=== PATIENT | female | born 1960 | race Caucasian/White ===

== ENCOUNTER 2018-08-25 12:14 | Emergency (ER) | payer BC, SELFPAY ==
[2018-08-25] MEDS ORDERED: IBUPROFEN 200 MG TAB PO ONE (13:31)
[2018-08-25] MEDS ORDERED: IBUPROFEN 400 MG TAB ONE (13:31)
[2018-08-25 14:06] LABS: Urine Blood 2+ (NEG); Urine Glucose NEGATIVE (NEG); Urine Protein NEGATIVE (NEG)
[2018-08-25 14:38] LABS: Absolute Lymphocytes (CBC) 0.4 K/uL (0.7-4.9); Absolute Monocytes 0.7 K/uL (0.1-1.3); Absolute Neutrophil 8.5 K/uL (1.8-8.0); Basophils % 0.7 % (0-1.3); Eosinophils % 0.2 % (0-4.4); Hematocrit 41.6 % (36.0-45.0); Lymphocytes % 4.2 % (15.3-44.8); MPV 8.9 fL (7.6-11.3); Monocytes % 7.4 % (3.3-12.3); RBC Red Blood Cell Count 4.69 M/uL (3.86-4.86)
[2018-08-25 14:39] LABS: Protime INR 1.04
[2018-08-25] MEDS ORDERED: NA CHLORIDE 0.9% 1,000 ML ONE (14:40)
--- NOTE | 2018-08-25 14:41 | EKG ---
Test Date: 2018-08-25 Test Time: 13:38:34 Mine Administrator Supervisor: NACHO MEASUREMENT RESULTS: Intervals: Rate: 101 [place]: 112 QRSD: 88 QT: 338 QTc: 438 [place]: P: 34 [place]: 112 QRS: 4 T: -1 INTERPRETIVE STATEMENTS: Sinus tachycardia Cannot rule out Anterior infarct, age undetermined T wave abnormality, consider lateral ischemia Abnormal ECG No previous ECG available for comparison Electronically Signed On 08-25-18 14:40:39 CDT by Bereket Fisher
[2018-08-25 15:01] LABS: ALT/SGPT 46 U/L (12-78); AST/SGOT 37 U/L (15-37); Alkaline Phosphatase 87 U/L (45-117); BUN Blood Urea Nitrogen 11 mg/dL (7-18); Bicarbonate 25 mmol/L (21-32); Bilirubin Direct < 0.1 mg/dL (0-0.2); Bilirubin Total 0.3 mg/dL (0.2-1.0); Glucose Level 91 mg/dL (74-106); Magnesium 2.1 mg/dL (1.8-2.4); NT PRO-BNP 264 pg/mL (<125); Protein, Total 7.7 g/dL (6.4-8.2); Sodium Level 139 mmol/L (136-145); Troponin (Emerg Dept Use Only) < 0.02 ng/mL (0.0-0.045)
--- NOTE | 2018-08-25 15:11 | RAD REPORT ---
EXAM DESCRIPTION: RAD - Chest Single View - 08/25/2018 3:01 pm CLINICAL HISTORY: Chest pain, shortness of breath, cough and congestion COMPARISON: None. TECHNIQUE: AP portable chest image was obtained 1437 hours . FINDINGS: No focal mass or consolidation. No acute failure or volume overload. Interstitial markings are mildly prominent suspected to be baseline. Heart and vasculature are normal. No measurable pleur al effusion and no pneumothorax. No acute bony abnormality seen. No acute aortic findings suspected. IMPRESSION: No acute cardiopulmonary process.
[2018-08-25 15:21] LABS: Blood Morphology Comment NOT SEEN (NOT SEEN); Platelet Estimate ADEQ; Urine White Blood Cell Casts OK
[2018-08-25] MEDS ORDERED: KETOROLAC 30 MG/ML INJ ONE (16:28)
--- NOTE | 2018-08-25 17:43 | ER ---
Nurse's Notes [facility] Name: Giovanna Parker Age: 57 yrs Sex: Female : 1960 Arrival Date: 08/25/2018 Time: 12:18 Bed 23 Private MD: Diagnosis: Viral infection of unspecified site;Headache Presentation: 08/25 13:14 Presenting complaint: Patient states: i woke up this morning and i couldn't move my tw2 legs, they eli stiff and heavy, then my arms ached then i ached all over, i am having chest pain and right side pain, i have cough, sore throat, congestion. Transition of care: patient was not received from another setting of care. Onset of symptoms was August 25, 2018. Risk Assessment: Do you want to hurt yourself or someone else? Patient reports no desire to harm self or others. Initial Sepsis Screen: Does the patient meet any 2 criteria? RR > 20 per min. HR > 90 bpm. No. Patient's initial sepsis screen is negative. Does the patient have a suspected source of infection? Yes: Productive cough/pneumonia. Note EKG paged to triage. Care prior to arrival: None. 13:14 Method Of Arrival: Ambulatory tw2 13:14 Acuity: SHANICE 2 tw2 Triage Assessment: 13:16 General: Appears uncomfortable, ill, Behavior is appropriate for age, quiet. Pain: tw2 Complains of pain in chest and i ache all over. GI: Reports nausea. Historical: - Allergies: 13:14 No Known Allergies; tw2 - Home Meds: 13:14 None [Active]; tw2 - PMHx: 13:14 None; tw2 - PSHx: 13:14 Tubal ligation; Cholecystectomy; tw2 - Immunization history:: Adult Immunizations. - Social history:: Smoking status: Patient uses tobacco products, smokes one-half pack cigarettes per day. - Ebola Screening: : Patient denies travel to an Ebola-affected area in the 21 days before illness onset. Screenin:27 Abuse screen: Denies threats or abuse. Denies injuries from another. Nutritional ca1 screening: No deficits noted. Tuberculosis screening: No symptoms or risk factors identified. Fall Risk None identified. Assessment: 13:27 General: Appears in no apparent distress. comfortable, Behavior is calm, cooperative, ca1 appropriate for age. General: Reports fever for feeling ill for 0-12 hours. Pain: Complains of pain in reports aching pain all over the body that started this morning. Neuro: Level of Consciousness is awake, alert, obeys commands, Oriented to person, place, time, situation. Cardiovascular: Heart tones S1 S2 present Capillary refill < 3 seconds Patient's skin is warm and dry. Respiratory: Airway is patent Respiratory effort is even, unlabored, Respiratory pattern is regular, symmetrical, Breath sounds are clear bilaterally. Respiratory: Reports cough that is since yesterday. GI: Abdomen is flat, non-distended, Bowel sounds present X 4 quads. Abd is soft and non tender X 4 quads. GI: Reports nausea, vomiting, since since this morning. : No deficits noted. No signs and/or symptoms were reported regarding the genitourinary system. EENT: Reports nasal congestion since yesterday. Derm: Skin is intact, is healthy with good turgor, Skin is pink, warm \T\ dry. Musculoskeletal: Circulation, motion, and sensation intact. Capillary refill < 3 seconds. 13:37 Reassessment: Pt ambulated to restroom with steady gait. ss 14:45 Reassessment: Patient appears in no apparent distress at this time. Patient and/or ca1 family updated on plan of care and expected duration. Pain level reassessed. Patient is alert, oriented x 3, equal unlabored respirations, skin warm/dry/pink. 15:41 Reassessment: Patient appears in no apparent distress at this time. Patient is alert, ca1 oriented x 3, equal unlabored respirations, skin warm/dry/pink. 16:30 Reassessment: Patient appears in no apparent distress at this time. Patient and/or ca1 family updated on plan of care and expected duration. Pain level reassessed. Patient is alert, oriented x 3, equal unlabored respirations, skin warm/dry/pink. 17:45 Reassessment: Patient appears in no apparent distress at this time. Patient is alert, ca1 oriented x 3, equal unlabored respirations, skin warm/dry/pink. Patient states feeling better. Vital Signs: 13:13 BP 136 / 57; Pulse 118; Resp 19; Temp 100.6(O); Pulse Ox 96% ; Weight 63.5 kg (R); tw2 Height 5 ft. 4 in. (162.56 cm) (R); Pain 10/10; 13:42 BP 127 / 78; Temp 100(O); Pulse Ox 94% on R/A; Pain 10/10; ss 14:45 BP 107 / 66; Pulse 94; Resp 18 S; Temp 99.8(O); ca1 15:39 BP 102 / 60; Pulse 94; Resp 17 S; Temp 99.3(O); Pulse Ox 96% on R/A; ca1 17:06 BP 102 / 65; Pulse 82; Resp 18; Temp 99.4; Pulse Ox 100% on R/A; mg2 18:00 BP 111 / 78; Pulse 94; Resp 17 S; Temp 99.1(O); Pulse Ox 99% on R/A; ca1 13:13 Body Mass Index 24.03 (63.50 kg, 162.56 cm) tw2 ED Course: 12:18 Patient arrived in ED. mr 13:14 Arm band placed on. tw2 13:16 Triage completed. tw2 13:26 Iqra Best, RN is Primary Nurse. ca1 13:27 Patient has correct armband on for positive identification. Placed in gown. Bed in low ca1 position. Call light in reach. Side rails up X 1. pattern stamper on. Pulse ox on. NIBP on. Warm blanket given. 13:43 EKG done, by technology services manager. reviewed by Haris Cruz MD. at1 14:07 Haris Cruz MD is Attending Physician. kdr 14:31 Inserted saline lock: 20 gauge in right antecubital area, using aseptic technique. ss Blood collected. 15:01 XRAY Chest (1 view) In Process Unspecified. EDMS 18:12 No provider procedures requiring assistance completed. IV discontinued, intact, ca1 bleeding controlled, No redness/swelling at site. Pressure dressing applied. Administered Medications: 13:18 Drug: Motrin 600 mg Route: PO; tw2 13:41 Follow up: Response: No adverse reaction; Temperature is decreased ss 14:31 Drug: NS 0.9% 500 ml Route: IV; Rate: bolus; Site: right antecubital; ss 15:30 Follow up: IV Status: Completed infusion ca1 16:19 Drug: TORadol - Ketorolac 15 mg Route: IVP; Site: right antecubital; mg2 17:30 Follow up: Response: No adverse reaction; Pain is decreased ca1 16:19 Drug: NS 0.9% 1000 ml Route: IV; Rate: 1 bolus; Site: right antecubital; mg2 17:30 Follow up: Response: No adverse reaction; IV Status: Completed infusion ca1 Outcome: 17:42 Discharge ordered by . kdr 18:12 Discharged to home ambulatory. ca1 18:12 Condition: stable 18:12 Discharge instructions given to patient, Instructed on discharge instructions, follow up and referral plans. medication usage, Demonstrated understanding of instructions, follow-up care, medications, Prescriptions given X 2. 18:13 Patient left the ED. ca1 Signatures: Dispatcher [employer] EDMS Haris Cruz MD MD kdr Modi, Venessa bhakta Susu Martinez, RN RN ss Mehnaz Heaton, hardboard grinder EKG Tat1 Page Sibley RN RN tw2 James Carter RN RN mg2 Iqra Best RN RN ca1 Corrections: (The following items were deleted from the chart) 19:50 19:49 Response: No adverse reaction; IV Status: Completed infusion ca1 ca1
--- NOTE | 2018-08-25 17:43 | EDPHYS ---
Physician Documentation [facility] Name: Giovanna Parker Age: 57 yrs Sex: Female : 1960 Arrival Date: 08/25/2018 Time: 12:18 Bed 23 Private MD: ED Physician Haris Cruz HPI: 08/25 17:46 This 57 yrs old Female presents to ER via Ambulatory with complaints of kdr Fever, Vomiting, Headache, Dizziness. 17:46 The patient reports fever, not measured (subjective). Onset: The symptoms/episode kdr began/occurred gradually, this morning, today. Modifying factors: there are no obvious modifying factors. Associated signs and symptoms: Pertinent positives: arthralgias, backache, chills, cough, that is dry, headache, myalgias, nausea. Severity of symptoms: At their worst the symptoms were moderate in the emergency department the symptoms are unchanged. The patient has not experienced similar symptoms in the past. The patient has not recently seen a physician. Historical: - Allergies: 13:14 No Known Allergies; tw2 - Home Meds: 13:14 None [Active]; tw2 - PMHx: 13:14 None; tw2 - PSHx: 13:14 Tubal ligation; Cholecystectomy; tw2 - Immunization history:: Adult Immunizations. - Social history:: Smoking status: Patient uses tobacco products, smokes one-half pack cigarettes per day. - Ebola Screening: : Patient denies travel to an Ebola-affected area in the 21 days before illness onset. ROS: 17:46 Constitutional: Negative for weight loss, has had fever and chills Eyes: Negative for kdr injury, pain, redness, and discharge, ENT: Negative for injury, pain, and discharge, Neck: Negative for injury, pain, and swelling, Cardiovascular: Negative for chest pain, palpitations, and edema, Abdomen/GI: Negative for abdominal pain, nausea, vomiting, diarrhea, and constipation, Back: Negative for injury and pain, : Negative for injury, bleeding, discharge, and swelling, MS/Extremity: Negative for injury and deformity, Skin: Negative for injury, rash, and discoloration, Neuro: Negative for headache, weakness, numbness, tingling, and seizure activity. Psych: Negative for depression, anxiety, suicide ideation, homicidal ideation, and hallucinations, Allergy/Immunology: Negative for hives, rash, and allergies, Endocrine: Negative for neck swelling, polydipsia, polyuria, polyphagia, and marked weight changes, Hematologic/Lymphatic: Negative for swollen nodes, abnormal bleeding, and unusual bruising. 17:46 Respiratory: Positive for cough, Negative for dyspnea on exertion, shortness of breath, sputum production, wheezing. 17:46 Back: Positive for Exam: 17:46 Constitutional: This is a well developed, well nourished patient who is awake, alert, kdr and in minor distress. Head/Face: Normocephalic, atraumatic. Eyes: Pupils equal round and reactive to light, extra-ocular motions intact. Lids and lashes normal. Conjunctiva and sclera are non-icteric and not injected. Cornea within normal limits. Periorbital areas with no swelling, redness, or edema. Neck: Trachea midline, no thyromegaly or masses palpated, and no cervical lymphadenopathy. Supple, full range of motion without nuchal rigidity, or vertebral point tenderness. No Meningismus. Chest/axilla: Normal chest wall appearance and motion. Nontender with no deformity. No lesions are appreciated. Cardiovascular: Regular rate and rhythm with a normal S1 and S2. No gallops, murmurs, or rubs. Normal PMI, no JVD. No pulse deficits. Respiratory: Lungs have equal breath sounds bilaterally, clear to auscultation and percussion. No rales, rhonchi or wheezes noted. No increased work of breathing, no retractions or nasal flaring. Abdomen/GI: Soft, non-tender, with normal bowel sounds. No distension or tympany. No guarding or rebound. No evidence of tenderness throughout. Back: No spinal tenderness. No costovertebral tenderness. Full range of motion. Skin: Warm, dry with normal turgor. Normal color with no rashes, no lesions, and no evidence of cellulitis. MS/ Extremity: Pulses equal, no cyanosis. Neurovascular intact. Full, normal range of motion. Neuro: Awake and alert, GCS 15, oriented to person, place, time, and situation. Cranial nerves II-XII grossly intact. Motor strength 5/5 in all extremities. Sensory grossly intact. Cerebellar exam normal. Normal gait. Psych: Awake, alert, with orientation to person, place and time. Behavior, mood, and affect are within normal limits. Vital Signs: 13:13 BP 136 / 57; Pulse 118; Resp 19; Temp 100.6(O); Pulse Ox 96% ; Weight 63.5 kg (R); tw2 Height 5 ft. 4 in. (162.56 cm) (R); Pain 10/10; 13:42 BP 127 / 78; Temp 100(O); Pulse Ox 94% on R/A; Pain 10/10; ss 14:45 BP 107 / 66; Pulse 94; Resp 18 S; Temp 99.8(O); ca1 15:39 BP 102 / 60; Pulse 94; Resp 17 S; Temp 99.3(O); Pulse Ox 96% on R/A; ca1 17:06 BP 102 / 65; Pulse 82; Resp 18; Temp 99.4; Pulse Ox 100% on R/A; mg2 18:00 BP 111 / 78; Pulse 94; Resp 17 S; Temp 99.1(O); Pulse Ox 99% on R/A; ca1 13:13 Body Mass Index 24.03 (63.50 kg, 162.56 cm) tw2 MDM: 17:42 Patient medically screened. kdr 17:46 Data reviewed: vital signs, nurses notes, lab test result(s), radiologic studies. kdr Counseling: I had a detailed discussion with the patient and/or guardian regarding: the historical points, exam findings, and any diagnostic results supporting the discharge/admit diagnosis, lab results, radiology results, the need for outpatient follow up. ED course: The patient was improved with the inter. 08/25 13:44 Order name: Urine Dipstick--Ancillary (enter results); Complete Time: 16:10 eb 08/25 14:08 Order name: Basic Metabolic Panel kdr 08/25 14:08 Order name: CBC with Diff kdr 08/25 14:08 Order name: LFT's; Complete Time: 16:10 kdr 08/25 14:08 Order name: Magnesium; Complete Time: 16:10 kdr 08/25 14:08 Order name: NT PRO-BNP; Complete Time: 16:10 kdr 08/25 14:08 Order name: PT-INR; Complete Time: 16:10 kdr 08/25 14:08 Order name: Troponin (emerg Dept Use Only); Complete Time: 16:10 kdr 08/25 14:08 Order name: XRAY Chest (1 view); Complete Time: 16:10 [facility] 08/25 14:08 Order name: ESR; Complete Time: 16:10 [facility] 08/25 14:08 Order name: Flu; Complete Time: 16:10 [facility] 08/25 14:09 Order name: Basic Metabolic Panel; Complete Time: 16:10 EDSD 08/25 14:09 Order name: CBC with Automated Diff; Complete Time: 16:10 [facility] 08/25 14:53 Order name: CBC Smear Scan; Complete Time: 16:10 [facility] 08/25 13:40 Order name: EKG; Complete Time: 13:41 08/25 13:40 Order name: EKG - Nurse/Tech; Complete Time: 13:41 08/25 14:08 Order name: Cardiac monitoring; Complete Time: 14:38 [facility] 08/25 14:08 Order name: IV Saline Lock; Complete Time: 14:38 [facility] 08/25 14:08 Order name: Labs collected and sent; Complete Time: 14:38 [facility] 08/25 14:08 Order name: O2 Per Protocol; Complete Time: 14:38 [facility] 08/25 14:08 Order name: O2 Sat Monitoring; Complete Time: 14:38 kdr Administered Medications: 13:18 Drug: Motrin 600 mg Route: PO; tw2 13:41 Follow up: Response: No adverse reaction; Temperature is decreased ss 14:31 Drug: NS 0.9% 500 ml Route: IV; Rate: bolus; Site: right antecubital; ss 15:30 Follow up: IV Status: Completed infusion ca1 16:19 Drug: TORadol - Ketorolac 15 mg Route: IVP; Site: right antecubital; mg2 17:30 Follow up: Response: No adverse reaction; Pain is decreased ca1 16:19 Drug: NS 0.9% 1000 ml Route: IV; Rate: 1 bolus; Site: right antecubital; mg2 17:30 Follow up: Response: No adverse reaction; IV Status: Completed infusion ca1 Disposition: 08/25/18 17:42 Discharged to Home. Impression: Viral infection of unspecified site, Headache. - Condition is Stable. - Discharge Instructions: General Headache Without Cause, Viral Respiratory Infection, [id number]. - Prescriptions for Zofran 4 mg Oral Tablet - take 1 tablet by ORAL route every 4-6 hours As needed; 10 tablet. Tamiflu 75 mg Oral Capsule - take 1 tablet by ORAL route every 12 hours for 5 days; 10 tablet. - Medication Reconciliation Form, Thank You Letter, Antibiotic Education, Prescription Opioid Use, Work release form form. - Follow up: Private Physician; When: 2 - 3 days; Reason: If symptoms return, Further diagnostic work-up, Recheck today's complaints, Continuance of care, Re-evaluation by your physician. - Problem is new. - Symptoms have improved. Signatures: Dispatcher [employer] EDMS Haris Cruz MD MD kdr Susu Martinez RN RN ss Page Sibley RN RN tw2 James Carter, RN RN mg2 Iqra Best RN RN ca1 Corrections: (The following items were deleted from the chart) 18:13 17:42 08/25/2018 17:42 Discharged to Home. Impression: Viral infection of unspecified ca1 site; Headache. Condition is Stable. Forms are Medication Reconciliation Form, Thank You Letter, Antibiotic Education, Prescription Opioid Use. Follow up: Private Physician; When: 2 - 3 days; Reason: If symptoms return, Further diagnostic work-up, Recheck today's complaints, Continuance of care, Re-evaluation by your physician. Problem is new. Symptoms have improved. kdr
== END 2018-08-25 18:13 | disposition home or self-care (01) ==
LOC: ER 12:14
DX: B34.9 Viral infection, unspecified (principal); R51 Headache; R05 Cough; F17.210 Nicotine dependence, cigarettes, uncomplicated
CPT/HCPCS: 36415; 71045; 80048; 80076; 81003; 83735; 83880; 84484; 85025; 85610; 85652; 87804; 93005; 96361; 96374; 99285; J7030

== ENCOUNTER 2018-08-28 08:36 | Emergency (ER) | payer BC ==
[2018-08-28] MEDS ORDERED: NA CHLORIDE 0.9% 1,000 ML ONE (09:18)
[2018-08-28] MEDS ORDERED: ONDANSETRON 4 MG/2 ML VIAL ONE (09:18)
--- NOTE | 2018-08-28 09:22 | EKG ---
Test Date: 2018-08-28 Test Time: 09:17:36 Automatic Lump Making Machine Tender: NACHO MEASUREMENT RESULTS: Intervals: Rate: 64 [place]: 154 QRSD: 86 QT: 426 QTc: 439 [place]: P: 50 OH: 154 QRS: 23 T: 11 INTERPRETIVE STATEMENTS: Normal sinus rhythm Cannot rule out Anterior infarct, age undetermined Abnormal ECG Compared to ECG 08/25/2018 13:38:34 Sinus tachycardia no longer present T-wave abnormality no longer present Possible ischemia no longer present Myocardial infarct finding still present Electronically Signed On 08-28-18 09:22:03 CDT by Timi Khan
[2018-08-28 09:26] LABS: Absolute Lymphocytes (CBC) 1.2 K/uL (0.7-4.9); Absolute Monocytes 0.5 K/uL (0.1-1.3); Absolute Neutrophil 3.6 K/uL (1.8-8.0); Basophils % 0.6 % (0-1.3); Eosinophils % 0.4 % (0-4.4); Hematocrit 41.9 % (36.0-45.0); Lymphocytes % 22.6 % (15.3-44.8); MPV 9.2 fL (7.6-11.3); Monocytes % 9.7 % (3.3-12.3); RBC Red Blood Cell Count 4.75 M/uL (3.86-4.86)
[2018-08-28 09:28] LABS: Urine Blood 2+ (NEG); Urine Glucose NEGATIVE (NEG); Urine Protein NEGATIVE (NEG); Urine Specific Gravity >1.030 (1.005-1.030); Urine pH 5.5 (5.0-7.0)
[2018-08-28 09:35] LABS: Urine Amorphous Sediment 1+ /HPF (NONE SEEN); Urine Bacteria <20 /HPF (<20); Urine Culture Reflex Order NOT NEEDED; Urine Mucus 2+ /HPF (NONE SEEN)
[2018-08-28 09:38] LABS: ALT/SGPT 45 U/L (12-78); AST/SGOT 31 U/L (15-37); Alkaline Phosphatase 75 U/L (45-117); BUN Blood Urea Nitrogen 15 mg/dL (7-18); Bicarbonate 29 mmol/L (21-32); Bilirubin Direct < 0.1 mg/dL (0-0.2); Bilirubin Total 0.3 mg/dL (0.2-1.0); Glucose Level 119 mg/dL (74-106); Lipase 86 U/L (73-393); Potassium 3.6 mmol/L (3.5-5.1); Protein, Total 7.8 g/dL (6.4-8.2); Sodium Level 143 mmol/L (136-145)
--- NOTE | 2018-08-28 10:04 | EDPHYS ---
Physician Documentation [facility] Name: Giovanna Parker Age: 57 yrs Sex: Female : 1960 Arrival Date: 08/28/2018 Time: 08:39 Bed 6 Private MD: Bret Figueredo T ED Physician Abe Evans HPI: 08/28 08:54 This 57 yrs old Female presents to ER via Unassigned with complaints of rn Abdominal Pain, Nausea. 08:54 The patient presents to the emergency department with nausea, abdominal pain, of the rn epigastric area. Onset: The symptoms/episode began/occurred 5 day(s) ago. Possible causes: unknown. The symptoms are aggravated by nothing. The symptoms are alleviated by nothing. Severity of symptoms: At their worst the symptoms were mild in the emergency department the symptoms are unchanged. The patient has not experienced similar symptoms in the past. The patient has been recently seen at the [facility] Emergency Department. Reports seen here 4-5 days ago, for fever/cough/fatigue, told might have flu, given zofran and tamiflu, states doesn't feel better, now more nausea and upper abd cramping, has had gallbladder removed, + mild diarrhea that is non-bloody. Reports feels lightheaded/dizzy/tired. No rash. Still no urinary symptoms. No chest pain/sob. . Historical: - Allergies: 09:00 No Known Allergies; iw - Home Meds: 09:00 None [Active]; iw - PMHx: 09:00 None; iw - PSHx: 09:00 Tubal ligation; Cholecystectomy; iw - Immunization history:: Adult Immunizations. - Family history:: not pertinent. - Ebola Screening: : Patient negative for fever greater than or equal to 101.5 degrees Fahrenheit, and additional compatible Ebola Virus Disease symptoms Patient denies exposure to infectious person Patient denies travel to an Ebola-affected area in the 21 days before illness onset No symptoms or risks identified at this time. - Social history:: Smoking status: unknown. - Hospitalizations: : No recent hospitalization is reported. ROS: 08:54 Constitutional: Negative for chills, and weight loss, Eyes: Negative for injury, pain, rn redness, and discharge, ENT: Negative for injury, pain, and discharge, Neck: Negative for injury, pain, and swelling, Cardiovascular: Negative for chest pain, palpitations, and edema, Respiratory: Negative for shortness of breath, wheezing, and pleuritic chest pain, Abdomen/GI: + abd cramping and nausea, negative for diarrhea or blood in stool Back: Negative for injury and pain, : Negative for injury, bleeding, discharge, and swelling, MS/Extremity: Negative for injury and deformity, Skin: Negative for injury, rash, and discoloration, Neuro: Negative for headache, numbness, tingling, and seizure. Exam: 08:54 Constitutional: This is a well developed, well nourished patient who is awake, alert, rn and in no acute distress. Ambulatory to bathroom and room without difficulty or assistance. Head/Face: Normocephalic, atraumatic. Eyes: Pupils equal round and reactive to light, extra-ocular motions intact. Lids and lashes normal. Conjunctiva and sclera are non-icteric and not injected. Cornea within normal limits. Periorbital areas with no swelling, redness, or edema. ENT: dry MM Neck: Trachea midline, no thyromegaly or masses palpated, and no cervical lymphadenopathy. Supple, full range of motion without nuchal rigidity, or vertebral point tenderness. No Meningismus. Respiratory: No increased work of breathing, no retractions or nasal flaring. Abdomen/GI: soft, non-tender, no masses, no peritoneal signs Skin: Warm, dry, no evidence of cellulitis MS/ Extremity: Pulses equal, no cyanosis. Neurovascular intact. Full, normal range of motion. Equal circumference. Neuro: Awake and alert, GCS 15, oriented to person, place, time, and situation. Cranial nerves II-XII grossly intact. Motor strength 5/5 in all extremities. Sensory grossly intact. Cerebellar exam normal. Normal gait. 09:20 ECG was reviewed by the Attending Physician. rn Vital Signs: 08:59 BP 128 / 78; Pulse 65; Resp 16; Temp 97.7(TE); Pulse Ox 100% on R/A; iw MDM: 08:44 Patient medically screened. rn 10:02 Differential diagnosis: viral gastroenteritis, gastroenteritis, flu, mono, viral rn syndrome. Data reviewed: vital signs, nurses notes, old medical records, lab test result(s), and as a result, I will discharge patient. Counseling: I had a detailed discussion with the patient and/or guardian regarding: the historical points, exam findings, and any diagnostic results supporting the discharge/admit diagnosis, lab results, the need for outpatient follow up, to return to the emergency department if symptoms worsen or persist or if there are any questions or concerns that arise at home. Special discussion: I discussed with the patient/guardian in detail that at this point there is no indication for admission to the hospital. It is understood, however, that if the symptoms persist or worsen the patient needs to return immediately for re-evaluation. 10:04 ED course: Long discussion with patient regarding flu and mono, and to avoid abd trauma rn due to risk of splenic/liver enlargement 2/2 mono.. 08/28 08:53 Order name: Basic Metabolic Panel; Complete Time: 09:47 rn 08/28 08:53 Order name: CBC with Diff; Complete Time: 09:47 rn 08/28 08:53 Order name: Hepatic Function; Complete Time: 09:47 rn 08/28 08:53 Order name: Lipase; Complete Time: 09:47 rn 08/28 08:53 Order name: Flu; Complete Time: 09:47 rn 08/28 08:53 Order name: [place] Screen Profile; Complete Time: 09:47 rn 08/28 08:53 Order name: Strep; Complete Time: 09:47 rn 08/28 08:53 Order name: Urine Microscopic Only; Complete Time: 09:47 rn 08/28 09:04 Order name: Urine Dipstick--Ancillary (enter results); Complete Time: 09:47 08/28 09:04 Order name: Urine --Ancillary (enter results) 08/28 09:05 Order name: Urine --Ancillary; Complete Time: 09:47 EDMS 08/28 09:34 Order name: Throat Culture EDMS 08/28 08:53 Order name: IV Saline Lock; Complete Time: 09:10 rn 08/28 08:53 Order name: Labs collected and sent; Complete Time: 09:11 rn 08/28 08:53 Order name: EKG; Complete Time: 08:54 rn 08/28 08:53 Order name: EKG - Nurse/Tech; Complete Time: 09:14 rn 08/28 08:53 Order name: Urine Dipstick-Ancillary (obtain specimen); Complete Time: 09:01 rn EC:20 Rate is 64 beats/min. Rhythm is regular. QRS Carr is Normal. GA interval is normal. QRS rn interval is normal. QT interval is normal. No Q waves. T waves are Inverted in leads II, III, aVF, V4, V5, V6. No ST changes noted. Clinical impression: NSR w/ Non-specific ST/T Changes. Interpreted by me. Reviewed by me. Administered Medications: 09: Drug: NS 0.9% 1000 ml Route: IV; Rate: 1000 ml; Site: right antecubital; iw 09:10 Drug: Zofran 4 mg Route: IVP; Site: right antecubital; iw Disposition: 08/28/18 10:03 Discharged to Home. Impression: Influenza due to identified novel influenza A virus, Infectious mononucleosis, unspecified, Dehydration. - Condition is Stable. - Discharge Instructions: Influenza, Adult, Infectious Mononucleosis. - Medication Reconciliation Form, Thank You Letter, Antibiotic Education, Prescription Opioid Use, Work release form form. - Follow up: Private Physician; When: As needed; Reason: Recheck today's complaints, Re-evaluation by your physician. - Problem is new. - Symptoms have improved. Signatures: Dispatcher [employer] EDGisela Roque RN RN iw Abe Evans MD MD rn imcu: (The following items were deleted from the chart) 10:04 10:03 08/28/2018 10:03 Discharged to Home. Impression: Influenza due to identified rn novel influenza A virus; Infectious mononucleosis, unspecified. Condition is Stable. Forms are Medication Reconciliation Form, Thank You Letter, Antibiotic Education, Prescription Opioid Use. Follow up: Private Physician; When: As needed; Reason: Recheck today's complaints, Re-evaluation by your physician. Problem is new. Symptoms have improved. rn 10:30 10:04 08/28/2018 10:03 Discharged to Home. Impression: Influenza due to identified iw novel influenza A virus; Infectious mononucleosis, unspecified; Dehydration. Condition is Stable. Forms are Medication Reconciliation Form, Thank You Letter, Antibiotic Education, Prescription Opioid Use. Follow up: Private Physician; When: As needed; Reason: Recheck today's complaints, Re-evaluation by your physician. Problem is new. Symptoms have improved. rn
--- NOTE | 2018-08-28 10:04 | ER ---
Nurse's Notes [facility] Name: Giovanna Parker Age: 57 yrs Sex: Female : 1960 Arrival Date: 08/28/2018 Time: 08:39 Bed 6 Private MD: Bret Figueredo T Diagnosis: Influenza due to identified novel influenza A virus;Infectious mononucleosis, unspecified;Dehydration Presentation: 08/28 08:55 Presenting complaint: Patient states: still not feeling well, was seen here a few days iw ago, c/o dizziness, nausea, indigestion, cough, fatigue, upper abd pain, states she was at work and just couldn't make it, was diagnosed with flu-like illness on the and sent home with nausea medicine and medicine for the flu. Transition of care: patient was not received from another setting of care. Onset of symptoms was August 28, 2018. Risk Assessment: Do you want to hurt yourself or someone else? Patient reports no desire to harm self or others. Initial Sepsis Screen: Does the patient meet any 2 criteria? No. Patient's initial sepsis screen is negative. Does the patient have a suspected source of infection? No. Patient's initial sepsis screen is negative. Care prior to arrival: None. 08:55 Method Of Arrival: Ambulatory iw 08:55 Acuity: SHANICE 3 iw Triage Assessment: 09:30 General: Appears in no apparent distress. Behavior is calm, cooperative. iw Historical: - Allergies: 09:00 No Known Allergies; iw - Home Meds: 09:00 None [Active]; iw - PMHx: 09:00 None; iw - PSHx: 09:00 Tubal ligation; Cholecystectomy; iw - Immunization history:: Adult Immunizations. - Family history:: not pertinent. - Ebola Screening: : Patient negative for fever greater than or equal to 101.5 degrees Fahrenheit, and additional compatible Ebola Virus Disease symptoms Patient denies exposure to infectious person Patient denies travel to an Ebola-affected area in the 21 days before illness onset No symptoms or risks identified at this time. - Social history:: Smoking status: unknown. - Hospitalizations: : No recent hospitalization is reported. Screenin:25 Abuse screen: Denies threats or abuse. Denies injuries from another. Nutritional iw screening: No deficits noted. Tuberculosis screening: No symptoms or risk factors identified. Fall Risk None identified. Assessment: 09:15 General: Appears in no apparent distress. uncomfortable, Behavior is calm, cooperative. iw Pain: Complains of pain in head and epigastric area. Neuro: Level of Consciousness is awake, alert, obeys commands, Oriented to person, place, time, situation, Moves all extremities. Cardiovascular: Patient's skin is warm and dry. Respiratory: Respiratory effort is even, unlabored, Respiratory pattern is regular. GI: Bowel sounds present X 4 quads. Abd is soft and non tender X 4 quads. Reports nausea. Derm: Skin is intact, is healthy with good turgor. Musculoskeletal: Range of motion: intact in all extremities. Vital Signs: 08:59 BP 128 / 78; Pulse 65; Resp 16; Temp 97.7(TE); Pulse Ox 100% on R/A; iw ED Course: 08:39 Patient arrived in ED. mr 08:39 Bret Figueredo MD is Private Physician. mr 08:43 Abe Evans MD is Attending Physician. rn 08:58 Triage completed. iw 09:01 Gisela Pacheco RN is Primary Nurse. iw 09:01 Arm band placed on. iw 09:14 Initial lab(s) drawn, by vt, sent to lab. Inserted saline lock: 20 gauge in right em1 antecubital area, using aseptic technique. Blood collected. 09:17 EKG done, by nuclear plant instrument technician. reviewed by Abe Evans MD. at1 10:25 Patient has correct armband on for positive identification. iw 10:50 No provider procedures requiring assistance completed. IV discontinued, intact, iw bleeding controlled, No redness/swelling at site. Pressure dressing applied. Administered Medications: 09:10 Drug: NS 0.9% 1000 ml Route: IV; Rate: 1000 ml; Site: right antecubital; iw 09:10 Drug: Zofran 4 mg Route: IVP; Site: right antecubital; iw Outcome: 10:03 Discharge ordered by . rn 10:29 Discharged to home ambulatory. iw 10:29 Condition: good 10:29 Discharge instructions given to patient, Instructed on discharge instructions, follow up and referral plans. Demonstrated understanding of instructions, follow-up care. 10:30 Patient left the ED. iw Signatures: Venessa Modi mr Gisela Pacheco, TANYA RN iw EvansAbe chu MD MD rn Martinez, Eric em1 Mehnaz Heaton, luggage maker EKG Tat1
== END 2018-08-28 10:30 | disposition home or self-care (01) ==
LOC: ER 08:36
DX: J10.1 Influenza due to other identified influenza virus with other respiratory manifestations (principal); B27.90 Infectious mononucleosis, unspecified without complication; E86.0 Dehydration
CPT/HCPCS: 36415; 80048; 80076; 81003; 81015; 81025; 83690; 85025; 86308; 87070; 87081; 87804; 93005; 96374; 99284; J2405; J7030

== ENCOUNTER 2018-10-23 18:58 | Emergency (ER) | payer BC ==
[2018-10-23 20:08] LABS: Absolute Lymphocytes (CBC) 3.6 K/uL (0.7-4.9); Basophils % 1.1 % (0-1.3); Eosinophils % 1.7 % (0-4.4); Hematocrit 40.5 % (36.0-45.0); Lymphocytes % 36.4 % (15.3-44.8); MPV 8.6 fL (7.6-11.3); Monocytes % 8.7 % (3.3-12.3); RBC Red Blood Cell Count 4.54 M/uL (3.86-4.86)
[2018-10-23 20:21] LABS: Potassium 3.7 mmol/L (3.5-5.1)
--- NOTE | 2018-10-23 20:46 | RAD REPORT ---
EXAM DESCRIPTION: CT - Head Brain Wo Cont - 10/23/2018 8:34 pm CLINICAL HISTORY: Dizziness COMPARISON: None. TECHNIQUE: Computed axial tomography of the head was obtained. IV contrast was not requested. All CT scans are performed using dose optimization technique as appropriate and may include automated exposure control or mA/KV adjustment according to patient size. FINDINGS: An intracranial bleed is not seen . The ventricles are normal in caliber. No extra-axial fluid collection is noted. Fluid within the sinuses/ mastoids is not seen. IMPRESSION: No acute intracranial abnormality is seen. If patient's symptoms persist MRI of the bra in would be recommended.
--- NOTE | 2018-10-23 21:13 | ER ---
Nurse's Notes [facility] Name: Giovanna Parker Age: 57 yrs Sex: Female : 1960 Arrival Date: 10/23/2018 Time: 19:00 Bed 7 Private MD: Diagnosis: Dizziness Presentation: 10/23 19:20 Presenting complaint: Patient states: Reports she started having dizziness at 9 AM ea today, started having numbness and tingling to the bottom of her feet and cindy upper quadrant ABD pain. Transition of care: patient was not received from another setting of care. Onset of symptoms was October 23, 2018. Risk Assessment: Do you want to hurt yourself or someone else? Patient reports no desire to harm self or others. Initial Sepsis Screen: Does the patient meet any 2 criteria? No. Patient's initial sepsis screen is negative. Does the patient have a suspected source of infection? No. Patient's initial sepsis screen is negative. Care prior to arrival: None. 19:20 Method Of Arrival: Ambulatory ea 19:20 Acuity: SHANICE 3 ea Triage Assessment: 19:36 General: Appears in no apparent distress. Behavior is appropriate for age. Pain: ea Complains of pain in right upper quadrant and left upper quadrant. Historical: - Allergies: 19:33 No Known Allergies; ea - Home Meds: 19:33 None [Active]; ea - PMHx: 19:33 None; ea - PSHx: 19:33 Cholecystectomy; Tubal ligation; ea - Immunization history:: Adult Immunizations up to date. - Social history:: Smoking status: Patient uses tobacco products, smokes one-half pack cigarettes per day. - Ebola Screening: : No symptoms or risks identified at this time. Screenin:34 Abuse screen: Denies threats or abuse. Nutritional screening: No deficits noted. ea Tuberculosis screening: No symptoms or risk factors identified. Fall Risk None identified. Assessment: 19:36 General: Appears in no apparent distress. Behavior is calm, cooperative, appropriate ea for age. Pain: Complains of pain in left upper quadrant and right upper quadrant. Neuro: Level of Consciousness is awake, alert, obeys commands, Oriented to person, place, time, situation. Cardiovascular: Patient's skin is warm and dry. Respiratory: Airway is patent Respiratory effort is even, unlabored, Respiratory pattern is regular, symmetrical. GI: Abdomen is non-distended, Bowel sounds present X 4 quads. Derm: Skin is pink, warm \T\ dry. Musculoskeletal: Circulation, motion, and sensation intact. 20:21 Reassessment: Patient and/or family updated on plan of care and expected duration. Pain ea level reassessed. Patient is alert, oriented x 3, equal unlabored respirations, skin warm/dry/pink. Awaiting on lab results. 20:28 Reassessment: Patient and/or family updated on plan of care and expected duration. Pain ea level reassessed. Patient is alert, oriented x 3, equal unlabored respirations, skin warm/dry/pink. Pt taken to CT. 20:43 Reassessment: Patient and/or family updated on plan of care and expected duration. Pain ea level reassessed. Patient is alert, oriented x 3, equal unlabored respirations, skin warm/dry/pink. Pt returned from CT. 21:36 Reassessment: Patient and/or family updated on plan of care and expected duration. Pain ea level reassessed. Patient is alert, oriented x 3, equal unlabored respirations, skin warm/dry/pink. Discharge instruction given to patient, verbalized the understanding of instruction. 21:39 Reassessment: Patient and/or family updated on plan of care and expected duration. Pain ea level reassessed. Patient is alert, oriented x 3, equal unlabored respirations, skin warm/dry/pink. Discharge instruction given to patient, verbalized the understanding of instruction. No s/s of pain or discomfort noted at this time. Pt left ED ambulatory, tolerating well, no s/s of pain or discomfort noted at this time. Vital Signs: 19:20 BP 126 / 73; Pulse 96; Resp 18; Temp 98.8; Pulse Ox 98% ; Weight 77.11 kg; Height 5 ft. ea 4 in. (162.56 cm); Pain 5/10; 19:40 BP 115 / 67 Supine; Pulse 82; ea 19:41 BP 116 / 76 Sitting; Pulse 80; ea 19:42 BP 126 / 76 Standing; Pulse 85; ea 20:44 BP 116 / 62; Pulse 79; Resp 20; Pulse Ox 99% ; ea 21:22 BP 120 / 84; Pulse 80; Resp 18; Pulse Ox 100% ; ea 21:37 Temp 97.6; ea 19:20 Body Mass Index 29.18 (77.11 kg, 162.56 cm) ea ED Course: 19:00 Patient arrived in ED. rg4 19:13 Annabel Millard, RN is Primary Nurse. ea 19:20 Eliezer Cutler PA is PHCP. jr8 19:20 Abe Evans MD is Attending Physician. jr8 19:20 Patient has correct armband on for positive identification. Placed in gown. Bed in low ea position. Call light in reach. Side rails up X2. 19:20 Arm band placed on right wrist. Patient placed in an exam room, on a stretcher, on ea pulse oximetry. 19:33 Triage completed. ea 20:00 Inserted saline lock: 20 gauge in right antecubital area, using aseptic technique. ea Blood collected. 20:34 CT Head Brain wo Cont In Process Unspecified. EDMS 21:23 No provider procedures requiring assistance completed. ea 21:37 IV discontinued, intact, bleeding controlled, No redness/swelling at site. Pressure ea dressing applied. Administered Medications: 21:22 Drug: Meclizine 25 mg Route: PO; ea 21:40 Follow up: Response: No adverse reaction ea Outcome: 21:12 Discharge ordered by . jr8 21:38 Discharged to home ambulatory. ea 21:38 Condition: stable 21:38 Discharge instructions given to patient, Instructed on discharge instructions, follow up and referral plans. medication usage, Demonstrated understanding of instructions, follow-up care, medications, Prescriptions given X 1. 21:40 Patient left the ED. ea Signatures: Dispatcher [employer] EDMS Eliezer Cutler PA PA jr8 Anitha Redmond 4 Annabel Millard RN RN erna Corrections: (The following items were deleted from the chart) 21:17 20:47 BP 178 / 103; Pulse 110bpm; Resp 19bpm; Pulse Ox 100%; ea ea
--- NOTE | 2018-10-23 21:13 | EDPHYS ---
Physician Documentation [facility] Name: Giovanna Parker Age: 57 yrs Sex: Female : 1960 Arrival Date: 10/23/2018 Time: 19:00 Bed 7 Private MD: ED Physician Abe Evans HPI: 10/23 20:07 This 57 yrs old Female presents to ER via Ambulatory with complaints of jr8 Dizziness. 20:07 The patient presents with dizziness, feeling faint, lightheadedness, feeling off jr8 balance. Onset: The symptoms/episode began/occurred this morning. Context: occurred at work, just prior to the episode the patient experienced blurred vision. Modifying factors: The symptoms are alleviated by closing eyes, holding head still, lying down, the symptoms are aggravated by movement of head, standing up, changing position. Associated signs and symptoms: Pertinent positives: blurred vision, nausea, palpitations, Pertinent negatives: abdominal pain, ataxia, chest pain, confusion, focal weakness, headache, numbness, shortness of breath, syncope, vomiting. Severity of symptoms: At their worst the symptoms were moderate in the emergency department the symptoms are unchanged. Patient's baseline: Neuro: alert and fully oriented, Motor: no deficits, Ambulation: walks without assistance, Speech: normal. The patient has not experienced similar symptoms in the past. The patient has not recently seen a physician. Historical: - Allergies: 19:33 No Known Allergies; ea - Home Meds: 19:33 None [Active]; ea - PMHx: 19:33 None; ea - PSHx: 19:33 Cholecystectomy; Tubal ligation; ea - Immunization history:: Adult Immunizations up to date. - Social history:: Smoking status: Patient uses tobacco products, smokes one-half pack cigarettes per day. - Ebola Screening: : No symptoms or risks identified at this time. ROS: 20:07 ENT: Negative for injury, pain, and discharge, Neck: Negative for injury, pain, and jr8 swelling, Respiratory: Negative for shortness of breath, cough, wheezing, and pleuritic chest pain, Abdomen/GI: Negative for abdominal pain, nausea, vomiting, diarrhea, and constipation, Back: Negative for injury and pain, MS/Extremity: Negative for injury and deformity, Skin: Negative for injury, rash, and discoloration. 20:07 Constitutional: Positive for fatigue, Negative for chills, fever. 20:07 Eyes: Positive for blurry vision, Negative for photophobia, vision loss. 20:07 ENT: Positive for sinus congestion, Negative for ear pain, foreign body sensation, hearing loss, sore throat. 20:07 Cardiovascular: Positive for palpitations, Negative for chest pain, edema, orthopnea. 20:07 Neuro: Positive for dizziness, Negative for altered mental status, gait disturbance, headache, numbness, syncope, visual changes. Exam: 20:07 Constitutional: This is a well developed, well nourished patient who is awake, alert, jr8 and in no acute distress. Head/Face: Normocephalic, atraumatic. Eyes: Pupils equal round and reactive to light, extra-ocular motions intact. Lids and lashes normal. Conjunctiva and sclera are non-icteric and not injected. Cornea within normal limits. Periorbital areas with no swelling, redness, or edema. Neck: Trachea midline, no thyromegaly or masses palpated, and no cervical lymphadenopathy. Supple, full range of motion without nuchal rigidity, or vertebral point tenderness. No Meningismus. Chest/axilla: Normal chest wall appearance and motion. Nontender with no deformity. No lesions are appreciated. Cardiovascular: Regular rate and rhythm with a normal S1 and S2. No gallops, murmurs, or rubs. Normal PMI, no JVD. No pulse deficits. Respiratory: Lungs have equal breath sounds bilaterally, clear to auscultation and percussion. No rales, rhonchi or wheezes noted. No increased work of breathing, no retractions or nasal flaring. Abdomen/GI: Soft, non-tender, with normal bowel sounds. No distension or tympany. No guarding or rebound. No evidence of tenderness throughout. Back: No spinal tenderness. No costovertebral tenderness. Full range of motion. Skin: Warm, dry with normal turgor. Normal color with no rashes, no lesions, and no evidence of cellulitis. MS/ Extremity: Pulses equal, no cyanosis. Neurovascular intact. Full, normal range of motion. Neuro: Awake and alert, GCS 15, oriented to person, place, time, and situation. Cranial nerves II-XII grossly intact. Motor strength 5/5 in all extremities. Sensory grossly intact. Cerebellar exam normal. Normal gait. 20:07 ENT: External ear(s): are unremarkable, Ear canal(s): are normal, TM's: no acute changes. 20:07 Neuro: Orientation: appropriate for stated age, to person, place, time \T\ situation. Mentation: is normal, Memory: is normal, Cranial nerves: CN II- XII are normal as tested, Cerebellar function: is grossly normal, normal finger to nose testing, heel to harrell testing is normal, able to perform alternating rapid hand movements, Sensation: is normal. Vital Signs: 19:20 BP 126 / 73; Pulse 96; Resp 18; Temp 98.8; Pulse Ox 98% ; Weight 77.11 kg; Height 5 ft. ea 4 in. (162.56 cm); Pain 5/10; 19:40 BP 115 / 67 Supine; Pulse 82; ea 19:41 BP 116 / 76 Sitting; Pulse 80; ea 19:42 BP 126 / 76 Standing; Pulse 85; ea 20:44 BP 116 / 62; Pulse 79; Resp 20; Pulse Ox 99% ; ea 21:22 BP 120 / 84; Pulse 80; Resp 18; Pulse Ox 100% ; ea 21:37 Temp 97.6; ea 19:20 Body Mass Index 29.18 (77.11 kg, 162.56 cm) ea MDM: 19:34 Patient medically screened. jr8 20:07 Differential diagnosis: cardiac arrhythmia, generalized weakness, near-syncope, jr8 vertigo. Data reviewed: vital signs, nurses notes, EKG. Data interpreted: Pulse oximetry: on room air is 97 %. Interpretation: normal. Test interpretation: by ED physician or midlevel provider: ECG. 21:10 Counseling: I had a detailed discussion with the patient and/or guardian regarding: the jr8 historical points, exam findings, and any diagnostic results supporting the discharge/admit diagnosis, lab results, radiology results, the need for outpatient follow up, a neurologist, to return to the emergency department if symptoms worsen or persist or if there are any questions or concerns that arise at home. Response to treatment: the patient's symptoms have mildly improved after treatment. ED course: Patient was concerned for black mold in motel that she is staying at. Told her that currently she is not exhibiting any acute signs of mold toxicity. If she thinks there is a problem with mold at her motel she needs to take that up with them . 10/23 19:51 Order name: CBC with Diff; Complete Time: 20:19 jr8 10/23 19:51 Order name: Basic Metabolic Panel; Complete Time: 20:35 jr8 10/23 19:51 Order name: EKG - Nurse/Tech; Complete Time: 20:04 jr8 10/23 19:51 Order name: CT Head Brain wo Cont; Complete Time: 20:52 jr8 EC:20 Rate is 74 beats/min. Rhythm is regular. QRS Johnston is Normal. VT interval is normal at jr8 152 msec. QRS interval is normal at 86 msec. QT interval is normal at 466 msec. No Q waves. T waves are Normal. No ST changes noted. Clinical impression: Normal ECG. Administered Medications: 21:22 Drug: Meclizine 25 mg Route: PO; ea 21:40 Follow up: Response: No adverse reaction ea Disposition: 10/24 00:53 Co-signature as Attending Physician, Abe Evans MD. rn Disposition: 10/23/18 21:12 Discharged to Home. Impression: Dizziness. - Condition is Stable. - Discharge Instructions: Dizziness. - Prescriptions for Meclizine 25 mg Oral Tablet - take 1 tablet by ORAL route every 8 hours As needed; 30 tablet. - Medication Reconciliation Form, Thank You Letter, Antibiotic Education, Prescription Opioid Use, Work release form form. - Follow up: Private Physician; When: 2 - 3 days; Reason: Recheck today's complaints, Continuance of care, Re-evaluation by your physician. - Problem is new. - Symptoms have improved. Signatures: Dispatcher [employer] EDLA Abe Evans MD MD rn Roszak, Josh, PA PA jr8 Annabel Millard RN RN erna Corrections: (The following items were deleted from the chart) 10/23 21:40 21:12 10/23/2018 21:12 Discharged to Home. Impression: Dizziness. Condition is Stable. ea Forms are Medication Reconciliation Form, Thank You Letter, Antibiotic Education, Prescription Opioid Use. Follow up: Private Physician; When: 2 - 3 days; Reason: Recheck today's complaints, Continuance of care, Re-evaluation by your physician. Problem is new. Symptoms have improved. jr8
[2018-10-23] MEDS ORDERED: MECLIZINE HCL 12.5 MG TAB ONE (21:32)
--- NOTE | 2018-10-24 12:29 | EKG ---
Test Date: 2018-10-23 Test Time: 19:58:20 [employer] Manager: SAMANTHA MEASUREMENT RESULTS: Intervals: Rate: 74 OR: 152 QRSD: 86 QT: 420 QTc: 466 [place]: P: 44 OR: 152 QRS: 15 T: 24 INTERPRETIVE STATEMENTS: Normal sinus rhythm Possible Anterior infarct, age undetermined Abnormal ECG Compared to ECG 08/28/2018 09:17:36 No significant changes Electronically Signed On 10-24-18 12:28:30 CDT by Bereket Fisher
== END 2018-10-23 21:40 | disposition home or self-care (01) ==
LOC: ER 18:58
DX: R42 Dizziness and giddiness (principal); F17.210 Nicotine dependence, cigarettes, uncomplicated
CPT/HCPCS: 36415; 70450; 80048; 85025; 93005; 99284